=== PATIENT | male | born 1995 | race Caucasian/White ===

== ENCOUNTER 2022-12-16 12:16 | Emergency (ER) | payer BC ==
[~2022-12-16] VITALS: Ht 160 cm; Wt 68.2 kg
[2022-12-16 12:21] VITALS: TEMP 97.9
[2022-12-16 13:07] LABS: BASO % 0.5 % (0.0-2.0); EOS # 0.1 K/mm3 (0.0-0.7); EOS % 0.8 % (0.0-4.0); GRAN # 6.5 K/mm3 (1.4-6.5); GRAN % 74.8 % (42.2-75.2); HEMATOCRIT 45.8 % (42.0-52.0); HEMOGLOBIN 16.2 g/dl (13.5-18.0); LYMPH # 1.5 K/mm3 (1.2-3.4); MEAN CELL VOLUME 87 fl (80.0-100.0); MEAN CORPUSCULAR HEMOGLOBIN 31 pg (27-31); MEAN CORPUSCULAR HGB CONC 35 g/dl (33.0-37.0); MEAN PLATELET VOLUME 9.2 fl (7.4-10.4); MONO # 0.6 K/mm3 (0.1-0.6); MONO % 6.7 % (1.7-9.3); PLATELET COUNT 292 K/mm3 (130-400); RED BLOOD COUNT 5.24 M/mm3 (4.20-5.60); REDCELL DISTRIBUTION WIDTH-CV 11.7 % (11.5-14.5)
[2022-12-16 13:23] LABS: ACETAMINOPHEN < 1.0 ug/mL (10-30); ALANINE AMINOTRANSFERASE 35 U/L (0-55); ALBUMIN 4.6 gm/dL (3.5-5.0); ALCOHOL(ethanol),MEDICAL < 10 mg/dL (0-10); ALKALINE PHOSPHATASE 55 U/L (40-150); ANION GAP 12 mmol/L (7-16); AST,SGOT 22 U/L (5-34); BILIRUBIN,TOTAL 1.3 mg/dL (0.2-1.2); BLOOD UREA NITROGEN 14 mg/dL (9-21); CALCIUM 9.9 mg/dL (8.4-10.2); CARBON DIOXIDE 25 mmol/L (22-29); CHLORIDE 105 mmol/L (98-107); GLUCOSE 93 mg/dL (70-99); POTASSIUM 4.1 mmol/L (3.5-4.5); SALICYLATE < 5.0 mg/dL (15.0-30.0); SODIUM 142 mmol/L (136-145); TOTAL PROTEIN 8.6 gm/dL (6.2-8.1)
[2022-12-16 13:29] LABS: COLLECTION METHOD CLEAN CATCH
[2022-12-16 13:44] LABS: PH 7.5 (5.0-8.5); URINE APPEARANCE Clear (CLEAR/HAZY); URINE BLOOD TRACE-INTACT (NEGATIVE); URINE COLOR Yellow (YELLOW); URINE GLUCOSE Negative (NEGATIVE); URINE KETONE TRACE (NEGATIVE); URINE NITRATE Negative (NEGATIVE); URINE PROTEIN(semi-quant) Negative (NEGATIVE); URINE UROBILINOGEN 0.2 E.U/dL (0.2-1.0)
[2022-12-16 13:45] LABS: MUCOUS Present (NOT PRESENT); SQUAMOUS EPITHELIAL None Seen /hpf (0-10); URINE BACTERIA None Seen /hpf (NONE SEEN); URINE RBC 0-2 /hpf (0-2)
[2022-12-16 13:54] LABS: TRICYCLIC ANTIDEPRESS URINE NEGATIVE
[2022-12-16] MEDS ORDERED: PROZAC40 MG PO (14:12)
[2022-12-16 16:14] VITALS: BP 124/70; PULSE 55
== END 2022-12-16 16:10 | disposition home or self-care (01) ==
LOC: COL.ER 12:16
PROVIDERS: Nurse Practitioner
DX: F32.A Depression, unspecified (principal); T43.222A Poisoning by selective serotonin reuptake inhibitors, intentional self-harm, initial encounter; F17.290 Nicotine dependence, other tobacco product, uncomplicated

== ENCOUNTER 2023-08-21 20:24 | Emergency (ER) | payer BC ==
[~2023-08-21] VITALS: Ht 160 cm; Wt 59.1 kg
[~2023-08-21 20:24] MED LIST: PROZAC40 MG PO
[2023-08-21 21:13] LABS: BASO # 0.1 K/mm3 (0.0-0.2); BASO % 0.5 % (0.0-2.0); EOS % 0.4 % (0.0-4.0); GRAN # 8.4 K/mm3 (1.4-6.5); GRAN % 73.3 % (42.2-75.2); HEMATOCRIT 42.8 % (42.0-52.0); HEMOGLOBIN 15.1 g/dl (13.5-18.0); LYMPH # 2.1 K/mm3 (1.2-3.4); LYMPH % 18.6 % (20.0-51.0); MEAN CELL VOLUME 87 fl (80.0-100.0); MEAN CORPUSCULAR HEMOGLOBIN 31 pg (27-31); MEAN CORPUSCULAR HGB CONC 35 g/dl (33.0-37.0); MEAN PLATELET VOLUME 9.5 fl (7.4-10.4); MONO # 0.8 K/mm3 (0.1-0.6); MONO % 6.8 % (1.7-9.3); PLATELET COUNT 266 K/mm3 (130-400); RED BLOOD COUNT 4.91 M/mm3 (4.20-5.60); REDCELL DISTRIBUTION WIDTH-CV 12.4 % (11.5-14.5)
[2023-08-21 21:29] LABS: ACETAMINOPHEN < 1.0 ug/mL (10-30); ALANINE AMINOTRANSFERASE 24 U/L (0-55); ALBUMIN 4.4 gm/dL (3.5-5.0); ALCOHOL(ethanol),MEDICAL < 10 mg/dL (0-10); ALKALINE PHOSPHATASE 47 U/L (40-150); ANION GAP 12 mmol/L (7-16); AST,SGOT 19 U/L (5-34); BILIRUBIN,TOTAL 1.2 mg/dL (0.2-1.2); BLOOD UREA NITROGEN 10 mg/dL (9-21); CALCIUM 9.7 mg/dL (8.4-10.2); CARBON DIOXIDE 23 mmol/L (22-29); CHLORIDE 106 mmol/L (98-107); CREATININE, serum 0.95 mg/dL (0.72-1.25); GLUCOSE 96 mg/dL (70-99); POTASSIUM 3.5 mmol/L (3.5-4.5); SALICYLATE < 5.0 mg/dL (15.0-30.0); SODIUM 141 mmol/L (136-145); TOTAL PROTEIN 8.2 gm/dL (6.2-8.1)
[2023-08-21 21:54] LABS: COLLECTION METHOD CLEAN CATCH
[2023-08-21 22:12] LABS: URINE APPEARANCE Clear (CLEAR/HAZY); URINE BLOOD Negative (NEGATIVE); URINE COLOR Yellow (YELLOW); URINE GLUCOSE Negative (NEGATIVE); URINE KETONE 1+ (NEGATIVE); URINE NITRATE Negative (NEGATIVE); URINE PROTEIN(semi-quant) TRACE (NEGATIVE); URINE UROBILINOGEN 0.2 E.U/dL (0.2-1.0)
[2023-08-21 22:13] LABS: URINE BACTERIA Occasional /hpf (NONE SEEN)
[2023-08-21 22:14] LABS: MUCOUS Present (NOT PRESENT); SQUAMOUS EPITHELIAL None Seen /hpf (0-10); URINE RBC None Seen /hpf (0-2)
[2023-08-21 22:20] LABS: TRICYCLIC ANTIDEPRESS URINE NEGATIVE
[2023-08-22 06:52] VITALS: BP 110/65; PULSE 83; TEMP 97.8
== END 2023-08-22 06:50 ==
LOC: COL.ER 20:24
PROVIDERS: Nurse Practitioner Primary Care
DX: T43.212A Poisoning by selective serotonin and norepinephrine reuptake inhibitors, intentional self-harm, initial encounter (principal); F32.A Depression, unspecified